=== PATIENT | male | born 1970 | race Caucasian/White ===

== ENCOUNTER 2018-01-05 12:45 | Emergency (ER) | payer SELFPAY ==
[~2018-01-05] VITALS: Ht 177.8 cm; Wt 66.2 kg
[2018-01-05 12:52] VITALS: Ht 177.8 cm; Wt 66.2 kg
[2018-01-05 14:37] VITALS: BP 129/81
== END 2018-01-05 14:37 | disposition home or self-care (01) ==
LOC: ED 12:45
DX: S29.8XXA Other specified injuries of thorax, initial encounter (principal); S63.502A Unspecified sprain of left wrist, initial encounter; V87.8XXA Person injured in other specified noncollision transport accidents involving motor vehicle (traffic), initial encounter; Y93.89 Activity, other specified; Y92.89 Other specified places as the place of occurrence of the external cause; Y99.8 Other external cause status